=== PATIENT | male | born 1970 | race Caucasian/White ===

== ENCOUNTER 2024-11-15 13:14 | Outpatient (CLI) | payer OTHER ==
--- NOTE | 2024-11-18 10:47 | RADIOLOGY REPORT ---
CLINICAL INDICATION: PAIN,WEAKNESS COMPARISON: None TECHNIQUE: Multiplanar, multisequence MRI of the left shoulder was performed without contrast. Contrast: None FINDINGS: Glenohumeral joint: There is no fracture or bone marrow edema. Alignment is maintained. Small subc hondral cysts in the humeral head and small osteophytes. There is shoulder joint effusion without s ignificant synovitis. Acromioclavicular joint: The acromioclavicular joint is narrowing with capsular hypertrophy. Type 2 acromion. Rotator cuff and bursae: There is full-thickness supraspinatus tear primarily involving the posterior distal fibers measuring 1.7 cm. The anterior fibers show interstitial tear at the myotendinous junct ion. There is infraspinatus tendinosis and fraying of the articular surface fibers. There is subscap ularis severe tendinosis. Teres minor tendon is intact. There is no regional muscle atrophy. No fluid distention of the subacromial subdeltoid bursa. Biceps tendon and glenoid labrum: The long head biceps tendon is located within the bicipital groove and intact. The anterior superior labrum is torn. IMPRESSION: 1. Hisupraspinatus tendinosis and full-thickness tear involving the posterior distal fibers measuring 1.7 cm. Anterior fibers show interstitial tear at the myotendinous junction infraspinatus tendinosi s and fraying of the articular surface fibers. 2. AC joint arthrosis. Subacromial subdeltoid bursitis. Type 2 acromion. Correlation for subacromia l impingement is recommended. 3. Glenohumeral joint effusion. 4. Tear of the anterior superior labrum.
== END 2024-11-15 23:59 | disposition home or self-care (01) ==
LOC: MRI02 13:14
PROVIDERS: ATTEND Nurse Practitioner Family
DX: S43.432A Superior glenoid labrum lesion of left shoulder, initial encounter (principal); M75.122 Complete rotator cuff tear or rupture of left shoulder, not specified as traumatic; M19.012 Primary osteoarthritis, left shoulder; M75.52 Bursitis of left shoulder; M25.712 Osteophyte, left shoulder; M25.512 Pain in left shoulder; R29.898 Other symptoms and signs involving the musculoskeletal system; M25.412 Effusion, left shoulder; X58.XXXA Exposure to other specified factors, initial encounter; Y93.89 Activity, other specified; Y92.89 Other specified places as the place of occurrence of the external cause; Y99.8 Other external cause status
CPT/HCPCS: 73221